=== PATIENT | female | born 1990 | race Caucasian/White ===

== ENCOUNTER 2018-08-26 12:57 | Emergency (ER) | payer OTHER, SELFPAY ==
[2018-08-26 13:07] VITALS: BP 134/91; PULSE 75; RESP 16; TEMP 36.2; O2SAT 100; BMI 24.3
--- NOTE | 2018-08-26 13:11 | DI.RAD.S_ITS ---
PROCEDURE: XR TOE LT MIN 2V INDICATIONS: injury to great toe - frozen turkey dropped on it yesterday TECHNIQUE: 3 views of the left toe(s) acquired. COMPARISON: None. FINDINGS: Bones: There is a mildly displaced, comminuted fracture of the distal phalanx of the great toe. No definite intra-articular involvement is seen. No additional fractures are detected. No dislocations are seen. Mild hallux valgus deformity is seen, with associated focal degenerative change of the 1st metatarsophalangeal joint. Soft tissues: No suspicious soft tissue densities. IMPRESSION: Mildly displaced fracture of the distal phalanx of the great toe. Dictated by: Romero Yepez M.D. on 08/26/2018 at 12:53 Approved by: Romero Yepez M.D. on 08/26/2018 at 12:54
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
[2018-08-26 16:07] VITALS: BP 134/79; PULSE 71; RESP 18; O2SAT 100
== END 2018-08-26 16:06 | disposition home or self-care (01) ==
PROVIDERS: Emergency Provider Nurse Practitioner Family
DX: S92.422A Displaced fracture of distal phalanx of left great toe, initial encounter for closed fracture (principal); W23.0XXA Caught, crushed, jammed, or pinched between moving objects, initial encounter; Y99.0 Civilian activity done for income or pay
CPT/HCPCS: 73660; 99282; 99283

== ENCOUNTER 2021-07-16 09:30 | Emergency (ER) | payer OTHER, SELFPAY ==
[2021-07-16 09:50] VITALS: BP 153/87; PULSE 84; RESP 16; TEMP 36.7; O2SAT 100; BMI 27.4
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
[2021-07-16] MEDS: TET,DIPH,PERTUSS(ACELL),VAC/PF 0.5 ML SYRINGE IM (10:08)
[2021-07-16] MEDS: LIDO 1%/SOD BICARB 8.4% (10ML) 10 ML SYRINGE INJ (10:08)
[2021-07-16] MEDS: BACITRACIN OINT 0.9 GM PCKT 1 APPLIC TOP (10:08)
[2021-07-16 11:28] VITALS: BP 119/71; PULSE 69; RESP 18; O2SAT 98
== END 2021-07-16 11:29 | disposition home or self-care (01) ==
PROVIDERS: Emergency Provider Emergency Medicine
DX: S71.111A Laceration without foreign body, right thigh, initial encounter (principal); W26.9XXA Contact with unspecified sharp object(s), initial encounter; Z23 Encounter for immunization
CPT/HCPCS: 12002; 90471; 99283; 99284; 90715

== ENCOUNTER → 2023-07-20 10:48 | Outpatient (CLI) | payer OTHER, SELFPAY ==
[2023-07-20 12:50] LABS: Influenza A - CEPHEID Flu A NEGATIVE (NEGATIVE); Influenza B - CEPHEID Flu B NEGATIVE (NEGATIVE); Respiratory Syncytial Virus Negative (Negative)
[2023-07-20 13:02] LABS: COVID-19 CEPHEID 4-PLEX PCR Negative (Negative)
== END ==
PROVIDERS: Visit Provider Physician Assistant
DX: R05.1 Acute cough (principal)
CPT/HCPCS: 0241U